=== PATIENT | female | born 2000 | race Caucasian/White ===

== ENCOUNTER 2020-07-07 05:30 | Emergency (ER) | payer MEDICAID ==
[~2020-07-07] VITALS: Ht 165.1 cm; Wt 65.9 kg
[2020-07-07] MEDS ORDERED: HYDROcodone/acetaminophen 5mg/325mg tablet PO ONE (05:40)
[2020-07-07 07:54] VITALS: BP 121/73
== END 2020-07-07 07:56 | disposition home or self-care (01) ==
LOC: ER 05:31
DX: S62.396A Other fracture of fifth metacarpal bone, right hand, initial encounter for closed fracture (principal); W22.8XXA Striking against or struck by other objects, initial encounter; Y93.89 Activity, other specified; Y92.89 Other specified places as the place of occurrence of the external cause; Y99.8 Other external cause status
CPT/HCPCS: 29125; 73130; 99283

== ENCOUNTER 2020-07-23 08:23 | Day surgery (SDC) | payer BC, MEDICAID ==
[2020-07-22 15:04] LABS: BASOPHILS # (AUTO) 0.1 X10'3 (0-0.2); BASOPHILS % (AUTO) 0.6 % (0-1); EOSINOPHILS # (AUTO) 0.1 X10'3 (0-0.9); EOSINOPHILS % (AUTO) 0.7 % (0-6); LYMPHOCYTES # (AUTO) 3.4 X10'3 (1.1-4.8); LYMPHOCYTES % (AUTO) 35.6 % (21-51); MEAN CORPUSCULAR HEMOGLOBIN 31.5 PG (27.0-31.0); MEAN CORPUSCULAR HGB CONC 33.7 g/dL (33.0-36.5); MEAN CORPUSCULAR VOLUME 93.5 FL (78-98); MEAN PLATELET VOLUME 9.1 FL (7.4-10.4); MONOCYTES # (AUTO) 0.5 X10'3 (0-0.9); NEUTROPHILS # (AUTO) 5.6 X10'3 (1.8-7.7); NEUTROPHILS % (AUTO) 58.1 % (42-75); PRE OP HEMATOCRIT 37.8 % (35.0-45.0); PRE OP HEMOGLOBIN 12.7 g/dL (12.0-16.0); PRE OP PLATELET COUNT 260 X10'3 (140-440); RED BLOOD COUNT 4.04 X10'6 (4.20-5.60); RED CELL DISTRIBUTION WIDTH 13.9 % (11.5-14.5)
[2020-07-22 15:38] LABS: HCG SERUM QL NEGATIVE
[2020-07-23] VITALS (8 sets, daily range): BP systolic 106–113; BP diastolic 57–70
[~2020-07-23] VITALS: Ht 165.1 cm; Wt 67.9 kg
[~2020-07-23 08:23] MED LIST: IBUP-1984 PO; cefazolin/dext.iso 2gm/50ml 50 ML IV ONE; famotidine 10mg tablet PO ONE; ringers solution, lacted 1,000 ML IV SCH
--- NOTE | 2020-07-23 09:25 | NUR ---
Patient asked screening questions for symptoms of covid. All questions answered with no. Will inform anesthesiologist.
[2020-07-23] MEDS ORDERED: BUPIVAcaine/PF 2.5mg/ml (0.25%) 10ml vial ONE (10:00)
[2020-07-23] MEDS ORDERED: ceFAZolin 1000mg inj ONE (10:00)
[2020-07-23] MEDS ORDERED: dexamethasone sod phosphate 10mg/ml inj ONE (10:18)
[2020-07-23] MEDS ORDERED: sevoflurane 250ml liquid IH ONE (10:18)
[2020-07-23] MEDS ORDERED: midazolam 2 mg/2 ml injection ONE (10:21)
[2020-07-23] MEDS ORDERED: fentaNYL/PF 50MCG/1 ML 2ML syringe ONE (10:21)
[2020-07-23] MEDS ORDERED: propofol inj 20 ML IV ONE (10:21)
[2020-07-23] MEDS ORDERED: ROPIVAcaine 0.5% (5mg/ml) 30ml vial ONE (10:26)
[2020-07-23] MEDS ORDERED: ringers solution, lacted 1,000 ML IV SCH (11:10)
[2020-07-23] MEDS ORDERED: morphine 4 MG/ML inj SYRINge IV PRN (11:10)
[2020-07-23] MEDS ORDERED: meperidine/PF 25mg/ml syringe IV PRN ×3 (11:10)
[2020-07-23] MEDS ORDERED: morphine 2 MG/ML inj. syringe IV PRN (11:10)
[2020-07-23] MEDS ORDERED: ondansetron/PF 4mg/2ml inj IV PRN (11:10)
[2020-07-23] MEDS ORDERED: proCHLORperazine 10 MG/2 ml inj IV PRN (11:10)
[2020-07-23] MEDS ORDERED: ondansetron/PF 4mg/2ml inj ONE (11:37)
--- NOTE | 2020-07-23 12:05 | NUR ---
Received from OR via BED, accompanied by Anesthesiologist DR ANTHONY and report given by Anesthesiolgist. PATIENT A&OX4, DENIES PAIN, V/S WNL, NEUROVASCULAR CHECKS INTACT, 20G PIV LUE, SCD ON, SPLINT DRESSING TO RIGHT WRIST CDI ELEVATED WITH ICEBAG APPLIED.
--- NOTE | 2020-07-23 12:45 | NUR ---
PATIENT A&OX4, DENIES PAIN, V/S WNL, NEUROVASCULAR CHECKS INTACT, 20G PIV LUE D/C, SCD OFF, SPLINT DRESSING TO RIGHT WRIST CDI ELEVATED WITH ICEBAG APPLIED. I HAVE REVIEWED D/C INSTRUCTIONS WITH PATIENT AND FAMILY AND THEY HAVE VERBALIZED UNDERSTANDING. PATIENT D/C HOME WITH ALL BELONGINGS AND FAMILY GAVE TRANSPORT HOME.
== END 2020-07-23 12:45 | disposition home or self-care (01) ==
LOC: PAS 08:23
PROVIDERS: ATTEND Orthopaedic Surgery
DX: S62.396A Other fracture of fifth metacarpal bone, right hand, initial encounter for closed fracture (principal); F12.90 Cannabis use, unspecified, uncomplicated; F41.9 Anxiety disorder, unspecified; F32.9 Major depressive disorder, single episode, unspecified; Z87.891 Personal history of nicotine dependence; Z79.899 Other long term (current) drug therapy; W22.09XA Striking against other stationary object, initial encounter; Y93.89 Activity, other specified; Y92.89 Other specified places as the place of occurrence of the external cause; Y99.8 Other external cause status
CPT/HCPCS: 26615; 36415; 82948; 84703; 85025; A6222; C1713; J0690; J1100; J2250; J2405; J2704; J3010; J3490; A4215; A4618; A6449; A7000; J2795; J7120

== ENCOUNTER → 2020-12-25 | Emergency (ER) | payer BC, MEDICAID ==
[~2020-12-25] VITALS: Ht 165.1 cm; Wt 75.0 kg
[~2020-12-25] MED LIST changes: -cefazolin/dext.iso 2gm/50ml 50 ML IV ONE; -famotidine 10mg tablet PO ONE; +ondansetron 4mg rapidly disintigrating tab PO ONE; +proCHLORperazine 10 MG/2 ml inj IM ONE; -ringers solution, lacted 1,000 ML IV SCH
[2020-12-25 03:38] VITALS: BP 117/75
--- NOTE | 2020-12-25 04:11 | NUR ---
pt unable to provide urine sample, states she urinated at home before coming and says she can't void.
[2020-12-25 05:48] LABS: URINE HCG NEGATIVE (NEG)
[2020-12-25 05:57] LABS: CLARITY,URINE CLEAR (Clear); COLOR,URINE YELLOW (Yellow); GLUCOSE, URINE NEGATIVE (Neg); KETONES,URINE 15 mg/dl (Neg); LEUKOCYTE ESTERASE ,URINE NEGATIVE (Neg); NITRITES, URINE NEGATIVE (Neg); OCCULT BLOOD,URINE NEGATIVE (Neg); PH,URINE 6.5 (4.8-8.0); PROTEIN,URINE NEGATIVE (Neg); UROBILINOGEN,URINE 0.2 E.U/dL (0.2-1.0)
[2020-12-25 06:01] LABS: UA COLLECTION TYPE CLN CATCH MIDSTREAM
== END | disposition home or self-care (01) ==
LOC: ER 03:35
DX: R10.84 Generalized abdominal pain (principal); R11.2 Nausea with vomiting, unspecified; R10.2 Pelvic and perineal pain; Z79.899 Other long term (current) drug therapy
CPT/HCPCS: 81003; 81025; 96372; 99283; J0780

== ENCOUNTER 2022-05-28 07:30 | Emergency (ER) | payer OTHER, MEDICAID ==
[~2022-05-28] VITALS: Ht 167.6 cm; Wt 77.3 kg
[~2022-05-28 07:30] MED LIST changes: -ondansetron 4mg rapidly disintigrating tab PO ONE; -proCHLORperazine 10 MG/2 ml inj IM ONE
[2022-05-28 07:32] VITALS: BP 113/83
[2022-05-28] MEDS ORDERED: bacitracin 15gm ointment TP ONE (08:35)
[2022-05-28] MEDS ORDERED: TETanus/Pertussis (Acell)/Diphther VAC/PF (Tdap-Adult) 0.5ml syringe IMVAC ONE (08:35)
[2022-05-28] MEDS ORDERED: acetaminophen 325mg tablet PO ONE (08:35)
[2022-05-28] MEDS ORDERED: LIDOcaine 1% W/epiNEPHrine 1:100,000 20ml vial IJ ONE (08:35)
[2022-05-28] MEDS ORDERED: ibuprofen tablet 400 MG TABLET PO ONE (08:35)
--- NOTE | 2022-05-28 09:03 | NUR ---
patient refused boostrix immunization at this time
== END 2022-05-28 10:42 | disposition home or self-care (01) ==
LOC: ER 07:31
DX: S91.312A Laceration without foreign body, left foot, initial encounter (principal); W22.09XA Striking against other stationary object, initial encounter; Y93.89 Activity, other specified; Y92.89 Other specified places as the place of occurrence of the external cause; Y99.8 Other external cause status
CPT/HCPCS: 12002; 73630; 99284; J7030; 90471; 90715; A6258; A6449

== ENCOUNTER 2024-11-27 07:59 | Emergency (ER) | payer OTHER, MEDICAID ==
[~2024-11-27] VITALS: Ht 165.1 cm; Wt 81.8 kg
[2024-11-27] MEDS ORDERED: AZIT250T2 PO (08:31)
[2024-11-27] MEDS: dexamethasone sod phosphate 10mg/ml inj PO STA (08:42)
[2024-11-27] MEDS: diphenhydrAMINE 25 MG/10 ML UD oral solution PO ONE (08:42)
[2024-11-27] MEDS: azithromycin 250mg tablet PO ONE (08:43)
[2024-11-27 09:04] LABS: STREP A SCREEN POSITIVE (Neg)
[2024-11-27 09:12] VITALS: BP 122/78; PULSE 119; RESP 18; TEMP 99.8; O2SAT 98
== END 2024-11-27 09:16 | disposition home or self-care (01) ==
LOC: ER 07:59
DX: J02.0 Streptococcal pharyngitis (principal); Z79.1 Long term (current) use of non-steroidal anti-inflammatories (NSAID)
CPT/HCPCS: 87880; 99284; J1100; Q0163

== ENCOUNTER 2025-06-02 07:40 | Emergency (ER) | payer MEDICAID, OTHER ==
[~2025-06-02] VITALS: Ht 165.1 cm; Wt 83.6 kg
[2025-06-02 07:50] VITALS: BP 121/72; PULSE 100; RESP 16; TEMP 97.8; O2SAT 98
--- NOTE | 2025-06-02 09:16 | Physician Documentation ---
History of Present Illness ~ Chief Complaint: Cough Stated Complaint: COUGH AND COLD SYMPTOMS Time Seen by MD: 09:03 OK to notify your PCP?: Yes Primary Medical Doctor: NONE Source: patient Mode of Arrival: POV Exam Limitations: no limitations HPI 25-year-old female presents with a cough, sore throat and runny nose since yesterday. She states yesterday she was feeling very sweaty but it was also very hot in her house as well. She states that she is also coughing up some yellow sputum. Medication Reconciliation Allergies: Coded Allergies: No Known Allergies (Unverified , 06/02/25) Scheduled Ibuprofen* (Motrin*), 1 TAB PO Q6H PRN, (Reported) Past Medical History Past Medical History: No Pertinent History Past Surgical History: noncontributory Last Menstrual Period: May 11, 2025 Alcohol Use: Rarely Lives In: Home Occupation: employed Review of Systems All Other Systems at this time: Reviewed and Negative Physical Exam Vital Signs: RN Vital Signs have been reviewed: Yes, Temperature: 97.8, Source: Temporal, Heart Rate: 100, Respiratory Rate: 16, BP: 121/72, Pulse Oximetry: 98, Weight: 83.600 Oxygen Flow Rate: 0 Pulse Oximetry Reflects: adequate oxygenation Physical Exam General: Alert, no distress. HEENT: No injection, moist mucous membranes. Bilateral TM clear. Slight posterior pharynx erythema. Tonsils not visible. Neck: Full range of motion. No cervical lymphadenopathy. Respiratory: No respiratory distress, equal chest rise and fall. Lungs clear bilaterally. Chest: No accessory muscle use. Cardiovascular: Regular rate and rhythm. No murmur, gallops, rubs or clicks. Gastrointestinal: Nondistended. Extremities: Normal range of motion, no deformity. Neurologic: Oriented x4. Psychiatric: Normal mood and affect. Skin: Normal color, warm and dry. Progress Results/Orders Results/Orders Vital Signs 06/02/25 07:50 Temp 97.8 Pulse 100 Resp 16 B/P (MAP) 121/72 Pulse Ox 98 O2 Flow Rate 0 Medical Decision Making Additional info obtained from: old records Findings 25-year-old female with viral illness symptoms. Her physical exam is unremark able other than some posterior pharynx erythema but her tonsils are not visible and she has no cervical lymphadenopathy. Her lung sounds are clear bilaterally I do not see any indication for a chest x-ray at this time. I discussed that this is likely a viral illness and not a bacterial illness which is good news because then she does not need an antibiotic. She mentioned that her kids have gone back to school and she has been trying to keep everything sprayed with a Lysol to prevent viral illness. We discussed the care instructions given in her discharge paperwork. I gave her return instructions as well. Differential Dx:Considerations: Include: Allergic rhinitis, Influenza, Peritonsillar abscess, Pharyngitis-Streptoccal, Pneumonia, Pnuemonitis, Sinusitis Departure Disposition: HOME / SELF CARE / HOMELESS Impression: Primary Impression: Cough Condition: Stable Discharge Instructions: Cough, Adult Additional Instructions: As discussed this is likely caused by a viral illness. Viral illnesses are self-limited, and take approximately 7-10 days to fully resolve. If you experience worsening cough, you can use Robitussin D or honey to help soothe the throat. Please get plenty of rest, drink lots of fluids, practice good hand hygiene, and use Tylenol and/or ibuprofen for pain and fever relief. Return back here for any new or worsening symptoms. Follow up with your primary care provider within the next week if there is no improvement. Referrals: NO PRIMARY CARE PROVIDER (PCP) Education Educated: Patient Educated regarding: diagnosis Additional Comment Medical Screen Exam This patient recieved a medical screening examination. After reviewing the individual's medical complaints with presenting symptoms and performing an appropriate physical examination, it was determined that no immediate life- threatening emergency medical condition is present. This individual is also not a women having contractions. Signature Scribe Signature: . Attestation: Scribed for Regi Toro by Regi Anguiano NP . 06/02/25 09:16 Parts of this note were created using [employer] voice recognition software program. While efforts were made to correct any mistakes made by this voice r ecognition software program, nonsensical phrases may remain in this note. In addition, there may be errors and syntax, grammar, content and spelling. REGI TORO Jun 02, 2025 09:16
== END 2025-06-02 09:23 | disposition home or self-care (01) ==
LOC: ER 07:40
DX: R05.9 Cough, unspecified (principal); R09.89 Other specified symptoms and signs involving the circulatory and respiratory systems
CPT/HCPCS: 99282